=== PATIENT | female | born 1935 | race Native Hawaiian/Other Pacific Islander ===

== ENCOUNTER 2016-07-03 11:34 | Inpatient (IN) | payer OTHER, BC ==
[~2016-07-03 11:34] MED LIST: ACET-206 PO; AMIO200T14 PO; ASA LO-DOSE81 MG PO; BYSTOLIC5 MG PO; CEFUROXIME500 MG PO; COUMADIN5 MG PO; COUMADIN7.5 MG PO; DICL1GEL2 TOP; LIPITOR20 MG PO; METO25TA2 PO; METO50TA27 PO; NYST100048 PO; PANT40TA PO; RANI150T78 PO; TRAM50TA PO; WARF5TAB6 PO; WARF7.5T5 PO; WARFARIN5 MG PO
[2016-07-06 05:45] LABS: PLATELET COUNT 250 K/uL (152-353)
[2016-07-06 05:52] LABS: POTASSIUM 3.8 mmol/L (3.6-5.2); SODIUM 139 mmol/L (136-145)
[2016-07-06 10:45] VITALS: BP 115/61; TEMP 98.5
== END 2016-08-01 11:06 | disposition still patient (30) ==
LOC: PAVB 11:34
PROVIDERS: ADMIT Internal Medicine
DX: M62.81 Muscle weakness (generalized) (principal); M80.051A Age-related osteoporosis with current pathological fracture, right femur, initial encounter for fracture; R26.81 Unsteadiness on feet; R41.82 Altered mental status, unspecified; R48.9 Unspecified symbolic dysfunctions; D64.9 Anemia, unspecified
CPT/HCPCS: 36415; 36430; 80048; 85014; 85018; 85027; 85610; 86850; 86900; 86901; 86922; 96374; J1650; P9016

== ENCOUNTER 2016-08-01 11:52 | Inpatient (IN) | payer OTHER, BC | END 2016-08-06 14:00 | disposition home or self-care (01) | LOC: PAVB 11:52 | PROVIDERS: ADMIT Internal Medicine | DX: Z51.89 Encounter for other specified aftercare (principal) ==